=== PATIENT | male | born 1965 | race Caucasian/White ===

== ENCOUNTER 2022-08-23 15:30 | Observation (INO) | payer BC ==
[~2022-08-23 15:30] MED LIST: Iopamidol-370 76% 500 ML 1 ML ONE
[2022-08-23] MEDS ORDERED: Aspirin Chewable 81 MG TAB ONE (15:40)
[2022-08-23 16:01] LABS: #Eosinphils 0.4 thou/uL (0.0-0.7); #Monocytes 0.9 thou/uL (0.11-0.59); #Neutrophils 3.9 thou/uL (1.40-6.50); %Basophils 0.4 % (0.0-1.0); %Eosinophils 5.2 % (0.0-10.0); %Lymphocytes 27.7 % (21.0-51.0); %Monocytes 12.1 % (0.0-10.0); %Neutrophils 54.7 % (42.0-75.0); Hemoglobin 16.4 g/dL (14.0-18.0); Mean Corpuscular HGB CONC 34.1 g/dL (32.0-36.0); Mean Corpuscular Hemoglobin 30.7 pg (27.0-31.0); Mean Corpuscular Volume 90.1 fl (78.0-98.0); Mean Platelet Volume 7.6 fL (7.4-10.4); Platelet Count 231 10x3/uL (130-400); RBC Distribution Width 11.3 % (11.5-14.5); Red Blood Cell (RBC) Count 5.36 mill/uL (4.70-6.10); White Blood Cell (WBC) Count 7.1 10x3/uL (4.8-10.8)
[2022-08-23 16:24] LABS: ALT (SGPT) 34 U/L (8-55); AST (SGOT) 24 U/L (5-34); Albumin 4.7 g/dL (3.5-5.0); Alkaline Phosphatase 59 U/L (40-110); Anion Gap 14 mmol/L (10-20); BUN (Urea Nitrogen) 15 mg/dL (8.4-25.7); Bilirubin, Total 1.1 mg/dL (0.2-1.2); Calc. Creatinine Clearance 0 mL/min (70-130); Calcium 9.8 mg/dL (7.8-10.44); Carbon Dioxide 26 mmol/L (22-29); Chloride 101 mmol/L (98-107); Estimated GFR 90; Globulin 2.9 g/dL (2.4-3.5); Glucose 111 mg/dL (70-105); Lipase 47 U/L (8-78); Potassium 3.9 mmol/L (3.5-5.1); Protein, Total 7.6 g/dL (6.0-8.3); Sodium 137 mmol/L (136-145)
[2022-08-23] MEDS ORDERED: Nitroglycerin 0.4 MG TAB (25 Tab Bottle) SL PRN (16:55)
[2022-08-23 18:47] VITALS: BMI 27.3
[2022-08-23 22:54] LABS: Troponin I Less than 0.010 ng/mL (< 0.028)
[2022-08-24] MEDS ORDERED: diphenhydrAMINE 25 MG CAP PO SCH (01:30)
[2022-08-24 01:38] LABS: Troponin I Less than 0.010 ng/mL (< 0.028)
[2022-08-24] MEDS ORDERED: Aspirin Chewable 81 MG TAB PO SCH ×2 (09:00→09:15)
[2022-08-24] MEDS ORDERED: Enoxaparin Sodium 40 MG/0.4 ML SYRINGE SC SCH ×2 (09:00→09:15)
[2022-08-24] MEDS ORDERED: Lisinopril 20 MG TAB PO SCH ×2 (09:00→09:15)
[2022-08-24] MEDS ORDERED: Hydrochlorothiazide 25 MG TAB PO SCH ×2 (09:00→09:15)
[2022-08-24 16:07] VITALS: BP 126/69; TEMP 98.4
[2022-08-25] MEDS ORDERED: Lisinopril 20 MG TAB PO SCH (09:00)
[2022-08-25] MEDS ORDERED: Aspirin Chewable 81 MG TAB PO SCH (09:00)
[2022-08-25] MEDS ORDERED: Hydrochlorothiazide 25 MG TAB PO SCH (09:00)
[2022-08-25] MEDS ORDERED: Enoxaparin Sodium 40 MG/0.4 ML SYRINGE SC SCH (09:00)
== END 2022-08-24 16:48 | disposition home or self-care (01) ==
LOC: ERS 15:30 → 2SW 18:23 → ERS 18:23 → 2SW 18:31 → INTOOBSV 18:31
PROVIDERS: ADMIT Hospitalist; ATTEND Nurse Practitioner Acute Care
DX: I20.0 Unstable angina (principal); I10 Essential (primary) hypertension; E78.00 Pure hypercholesterolemia, unspecified; R59.0 Localized enlarged lymph nodes; M47.816 Spondylosis without myelopathy or radiculopathy, lumbar region; M43.17 Spondylolisthesis, lumbosacral region; M48.07 Spinal stenosis, lumbosacral region; M51.37 Other intervertebral disc degeneration, lumbosacral region; Z86.14 Personal history of Methicillin resistant Staphylococcus aureus infection; Z79.82 Long term (current) use of aspirin; Z79.899 Other long term (current) drug therapy; Z88.5 Allergy status to narcotic agent; Z20.822 Contact with and (suspected) exposure to COVID-19
CPT/HCPCS: 36415; 71045; 71275; 74174; 78452; 80053; 83690; 83880; 84484; 85025; 85379; 93005; 93017; A9500; G0378; J0153; Q9967; U0003; U0005